=== PATIENT | male | born 1985 | race Hispanic/Latino ===

== ENCOUNTER 2018-09-10 09:48 | Outpatient (CLI) | payer BC ==
--- NOTE | 2018-09-10 10:40 | ULT ---
COMPLETE ABDOMINAL ULTRASOUND: Date: 09/10/18 HISTORY: Elevated liver function tests. FINDINGS: There is some liver enlargement with coarse increased liver echogenicity consistent with fatty change . There appears to be at least one small mobile gallstone without gallbladder wall thickening or jeanne cholecystic fluid. Common bile duct is 0.3 cm. No intrahepatic ductal dilatation. Visualized pancreas , IVC, aorta, and spleen are unremarkable. No evidence for renal hydronephrosis. No abscess or abnorm al fluid collection. IMPRESSION: Evidence for fatty changes in the liver. No evidence for common duct or intrahepatic ductal dilatatio n. At least one mobile gallstone without gallbladder wall thickening or other evidence for acute chol ecystitis. POS: [id number]
== END 2018-09-10 09:49 | disposition home or self-care (01) ==
LOC: SCSULT 09:48
PROVIDERS: ATTEND Family Medicine
DX: R74.0 Nonspecific elevation of levels of transaminase and lactic acid dehydrogenase [LDH] (principal); K76.0 Fatty (change of) liver, not elsewhere classified
CPT/HCPCS: 76700